=== PATIENT | female | born 1980 | race Caucasian/White ===

== ENCOUNTER → 2018-10-31 | Outpatient (CLI) | payer BC ==
[2017-02-03 16:00] VITALS: BMI 35.0
[~2018-10-31] MED LIST: CEP500 PO; CEPH500C24 PO; CIP500 PO; FAM20 PO; HYDR-385 PO; HYDR2TAB42 PO; IBU600 PO; IBUP800T37 PO; KET10 PO; LOR5/325 PO; OMEP40CA48 PO; ONDA4TAB PO; PER PO; PHENA200 GT; PHENA200 PO; PREN-127 PO; SUCR1TAB85 PO; TAM4 PO
[2018-10-31 09:45] LABS: PLATELET COUNT, AUTOMATED 463 K/uL (150-450)
== END ==
LOC: LAB 09:09
PROVIDERS: ATTEND Family Medicine
DX: R10.9 Unspecified abdominal pain (principal); K52.9 Noninfective gastroenteritis and colitis, unspecified
CPT/HCPCS: 36415; 82040; 82150; 82247; 82310; 82374; 82435; 82565; 82947; 83690; 84075; 84132; 84155; 84295; 84450; 84460; 84520; 85025

== ENCOUNTER 2019-01-30 07:14 | Emergency (ER) | payer BC ==
[2017-02-03 16:00] VITALS: Wt 86.2 kg
[2019-01-30] MEDS ORDERED: NS(*) 0.9% 1000 ML BAG 1,000 ML IV ONE (07:24)
[2019-01-30] MEDS ORDERED: ONDANSETRON 4 MG/2 ML VIAL IVP ONE (07:25)
[2019-01-30] MEDS ORDERED: fentaNYL CITR 100 MCG/2 ML AMP IVP ONE (07:25)
[2019-01-30 07:58] LABS: PLATELET COUNT, AUTOMATED 486 K/uL (150-450)
--- NOTE | 2019-01-30 08:16 | ER Report ---
History and Physical Time Seen By MD: 07:15 Hx. of Stated Complaint: PATIENT REPORTS UPPER ABDOMINAL PAIN, NAUSEA AND VOMITING SINCE YESTERDAY. HPI/ROS Awoke at 0400 with mid epigastric and RUQ pain that radiates to the back. No NSAIDs. Smoke THC not tobacco. No excessive ETOH use. Previous kidney stones. Known PUD and hiatal hernia. Complains of nausea and pain. No hematuria. No dysuria. No lower abdominal pain or vaginal bleeding. Allergies: Coded Allergies: No Known Drug Allergies (Verified , 01/21/15) Home Meds Active Scripts Ondansetron Hcl (ZOFRAN) 4 Mg Tablet, 4 MG PO Q12H for 5 Days, #14 TAB Prov:MARJAN JUDD MD 01/30/19 Hydrocodone Bit/Acetaminophen (HYDROCODON-ACETAMINOPHEN 5-325) 1 Each Tablet, 1 EACH PO Q6H for 3 Days, #14 TAB Prov:MARJAN JUDD MD 01/30/19 Ketorolac Tromethamine (KETOROLAC TROMETHAMINE) 10 Mg Tab, 10 MG PO Q6H PRN for PAIN, #12 TAB 0 Refills Prov:MARJAN JUDD MD 01/30/19 Discontinued Reported Medications Vits W-Ca,Fe,Fa(<1MG) ( VITAMINS) 1 Each Tablet, 1 EACH PO DAILY, TAB 02/03/17 Discontinued Scripts Cephalexin Monohydrate (CEPHALEXIN) 500 Mg Cap, 500 MG PO TID for 7 Days, #21 CAP 0 Refills Prov:CHULA MAGANA 02/06/17 Hydrocodone Bit/Acetaminophen (HYDROCODON-ACETAMINOPHEN 5-325) 1 Each Tablet, 1- 2 EACH PO Q4H PRN for pain, #40 TAB 0 Refills Prov:JONNY GARCIA MD 02/04/17 Ibuprofen (IBUPROFEN) 800 Mg Tablet, 1 TAB PO Q8H PRN for pain, #40 TAB 0 Refills TAKE WITH FOOD EVERY 8 HOURS Prov:JONNY GARCIA MD 02/04/17 Hx Smoking: Yes Smoking Status: Former Smoker Exposure to Second Hand Smoke?: No Hx Substance Use Disorder: No Hx Alcohol Use: Yes (RARE) Constitutional Vital Sign - Last 24 Hours 01/30/19 01/30/19 01/30/19 01/30/19 07:18 07:30 07:34 07:40 Temp 97.7 Pulse 90 68 Resp 16 B/P (MAP) 127/91 130/82 (98) Pulse Ox 90 95 O2 Delivery Room Air O2 Flow Rate 2.0 01/30/19 01/30/19 07:54 08:00 Pulse 70 B/P (MAP) 128/75 (92) Pulse Ox 99 Physical Exam General Appearance: The patient is alert, has no immediate need for airway protection and no current signs of toxicity. Eyes: Pupils equal and round no injection. Respiratory: Chest is non tender, lungs are clear to auscultation. Cardiac: regular rate and rhythm Gastrointestinal: Abdomen is soft with TTP of the midepigastric region and RUQ, no masses, bowel sounds normal. No RLQ pain or TTP. MSK: No flank TTP Skin: No rashes or lesions. DIFFERENTIAL DIAGNOSIS: After history and physical exam differential diagnosis was considered for abdominal pain including but not limited to appendicitis, cholecystitis, gastritis and urinary tract infection. Medical Decision Making Data Points Result Diagram: 01/30/1918 01/30/1918 Laboratory Hematology Test 01/30/19 07:18 White Blood Count 14.2 k/uL (4.5-11.0) H Red Blood Count 5.51 M/uL (4.17-5.56) Hemoglobin 16.2 g/dL (12.0-16.0) H Hematocrit 47.1 % (34.0-47.0) H Mean Corpuscular Volume 85.4 fL (80.0-96.0) Mean Corpuscular Hemoglobin 29.4 pg (26.0-33.0) Mean Corpuscular Hemoglobin Concent 34.5 g/dL (32.0-36.0) Red Cell Distribution Width 13.3 % (11.5-14.5) Platelet Count 486 K/uL (150-450) H Mean Platelet Volume 7.9 fL (7.2-11.1) Neutrophils (%) (Auto) 80.5 % (39.4-72.5) H Lymphocytes (%) (Auto) 12.6 % (17.6-49.6) L Monocytes (%) (Auto) 5.3 % (4.1-12.4) Eosinophils (%) (Auto) 0.5 % (0.4-6.7) Basophils (%) (Auto) 1.1 % (0.3-1.4) Nucleated RBC Relative Count (auto) 0.1 /100WBC Neutrophils # (Auto) 11.4 K/uL (2.0-7.4) H Lymphocytes # (Auto) 1.8 K/uL (1.3-3.6) Monocytes # (Auto) 0.7 K/uL (0.3-1.0) Eosinophils # (Auto) 0.1 K/uL (0.0-0.5) Basophils # (Auto) 0.2 K/uL (0.0-0.1) H Nucleated RBC Absolute Count (auto) 0.01 K/uL Chemistry Test 01/30/19 07:18 Sodium Level 138 mmol/L (137-145) Potassium Level 3.5 mmol/L (3.5-5.0) Chloride Level 104 mmol/L (98-107) Carbon Dioxide Level 22 mmol/L (22-31) Blood Urea Nitrogen 10 mg/dl (7-18) Creatinine 0.80 mg/dl (0.52-1.04) Glomerular Filtration Rate Calc > 60.0 Random Glucose 110 mg/dl (75-110) Calcium Level 9.6 mg/dl (8.4-10.2) Total Bilirubin 0.5 mg/dl (0.2-1.3) Aspartate Amino Transf (AST/SGOT) 22 U/L (0-35) Alanine Aminotransferase (ALT/SGPT) 34 U/L (0-56) Alkaline Phosphatase 80 U/L (0-126) Total Protein 8.1 g/dl (6.3-8.2) Albumin 4.6 g/dl (3.5-5.0) Lipase 91 U/L (23-300) Human Chorionic Gonadotropin, Qual Negative (NEGATIVE) ED Course/Re-evaluation ED Course Normal labs, HCG negative. Hydronephrosis seen on US, so CT to evaulate for kidney stone obtained. Seen is a 4mm right sided ureteral stone with moderate hydronephrosis. Improved with meds, and will d/c with same meds. Will follow up with Dr. Boogie. Decision to Disposition Date: Jan 30, 2019 Decision to Disposition Time: 10:43 Depart Departure Latest Vital Signs Vital Signs Date Time Temp Pulse Resp B/P (MAP) Pulse Ox O2 Delivery O2 Flow Rate FiO2 01/30/19 08:00 128/75 (92) 01/30/19 07:54 70 99 01/30/19 07:40 2.0 01/30/19 07:18 97.7 16 Room Air Impression: Primary Impression: Ureteral stone Condition: Improved Disposition: HOME OR SELF-CARE Referrals: MOHAMUD BOOGIE MD New Scripts Ondansetron Hcl (ZOFRAN) 4 Mg Tablet 4 MG PO Q12H for 5 Days, #14 TAB Prov: MARJAN JUDD MD 01/30/19 Hydrocodone Bit/Acetaminophen (HYDROCODON-ACETAMINOPHEN 5-325) 1 Each Tablet 1 EACH PO Q6H for 3 Days, #14 TAB Prov: MARJAN JUDD MD 01/30/19 Ketorolac Tromethamine (KETOROLAC TROMETHAMINE) 10 Mg Tab 10 MG PO Q6H PRN for PAIN, #12 TAB 0 Refills Prov: MARJAN JUDD MD 01/30/19 Patient Instructions: Kidney Stones (ED) MARJAN JUDD MD Jan 30, 2019 08:16
[2019-01-30] MEDS ORDERED: LIDOCAINE 2% VISC SLN 15ML UDC PO ONE (08:25)
[2019-01-30] MEDS ORDERED: MAG HYD/AL HYD/SIMETH 30ML UDC PO ONE (08:25)
[2019-01-30 08:30] VITALS: BP 135/77
[2019-01-30] MEDS ORDERED: KETOROLAC 30 MG/ML VIAL IVP ONE (08:30)
[2019-01-30] MEDS ORDERED: METOCLOPRAMIDE 10 MG/2 ML SDV IVP ONE (08:35)
--- NOTE | 2019-01-30 09:04 | RADIOLOGY IMAGING REPORT ---
FACILITY: [facility] PATIENT NAME: Jodie Rios : 1980 MR: [id number] V: [id number] EXAM DATE: ORDERING PHYSICIAN: MARJAN JUDD TECHNOLOGIST: Location: [facility] [place] Patient: Jodie Rios : 1980 Visit/Account:[id number] Date of Sevice: 01/30/2019 GALLBLADDER HISTORY: ABDOMINAL PAIN ADDITIONAL HISTORY: Right upper quadrant back pain COMPARISON: None. FINDINGS: Liver: Negative. Gallbladder: Unremarkable; no stones or sludge. Negative sonographic Jones's sign. Common duct: 3.5 mm diameter. Pancreas: Tail of the pancreas partially obscured by overlying bowel gas. Visualized portions of the pancreas appear normal. Right kidney: There is mild right-sided hydronephrosis. There is ureterectasis with proximal ureter m easuring 10 mm diameter terminating in a stone lodged in the proximal right ureter. The stone is well -visualized and measures 9 mm longest dimension. Upper abdominal aorta and IVC: Patent. Ascites: None visualized. IMPRESSION: There is a stone lodged in the proximal right ureter causing at least partial obstruction of the righ t renal collecting system. Slightly limited view of the pancreas. Remainder normal Results were called to MARJAN JUDD at 01/30/2019 8:48 AM. Report Dictated By: Naren Montalvo MD at 01/30/2019 8:48 AM Report E-Signed By: Naren Montalvo MD at 01/30/2019 8:55 AM [id number]
[2019-01-30] MEDS ORDERED: HYDROMORPHONE HCL 1 MG/ML SYRINGE IVP ONE (09:20)
--- NOTE | 2019-01-30 09:35 | RADIOLOGY IMAGING REPORT ---
FACILITY: [facility] - [place] PATIENT NAME: Jodie Rios : 1980 MR: [id number] V: [id number] EXAM DATE: [id number] ORDERING PHYSICIAN: MARJAN JUDD TECHNOLOGIST: Location: Patient: Jodie Rios : 1980 Visit/Account:[id number] Date of Sevice: 01/30/2019 CT ABDOMEN PELVIS W/O CON HISTORY: Right flank pain TECHNIQUE: CT abdomen and pelvis without intravenous contrast. One of the following dose optimization techniques was utilized in the performance of this exam: Autom ated exposure control; adjustment of the mA and/or kV according to the patient's size; or use of an i terative reconstruction technique. Specific details can be referenced in the facility's radiology C T exam operational policy. CONTRAST: None. COMPARISON: CT abdomen pelvis 07/11/2011. FINDINGS: Visualized lung bases: Negative. Hepatobiliary: Negative. Spleen: Negative. Adrenals: Negative. Pancreas: Negative. Kidneys/: The kidneys are normal in size and location. There is a 4 mm stone in the proximal right ureter with resultant moderate to severe right hydroureteronephrosis. Fat stranding is noted around the proximal right ureter. Distal to the obstructing stone the right ureter appears decompressed. Three additional punctate stones are noted in the right kidney. No evidence of left-sided hydrourete ronephrosis or left nephroureterolithiasis. The urinary bladder is decompressed. GI: There is a moderate sized hiatal hernia. No evidence of large or small bowel obstruction. The appendix is visualized and appears unremarkable. Vessels/spaces/nodes: Negative. A few tiny phleboliths are noted in the pelvis. Bones/soft tissues: Mild degenerative changes in the lower lumbar spine. No evidence of acute fracture or osseous destructive process. IMPRESSION: 1. Obstructing 4 mm stone in the proximal right ureter with resultant moderate to severe right hydro ureteronephrosis. Three additional punctate stones are noted in the right kidney. 2. Additional findings as detailed above. Report Dictated By: Russell Yanez MD at 01/30/2019 9:15 AM Report E-Signed By: Russell Yanez MD at 01/30/2019 9:26 AM WSN:[id number]
[2019-01-30] MEDS ORDERED: KET10 PO (10:49)
[2019-01-30] MEDS ORDERED: HYDR-385 PO (10:49)
[2019-01-30] MEDS ORDERED: ONDA4TAB97 PO (10:50)
== END 2019-01-30 11:13 | disposition home or self-care (01) ==
LOC: ER 07:54
DX: N20.1 Calculus of ureter (principal); Z87.442 Personal history of urinary calculi; Z87.891 Personal history of nicotine dependence; Z79.899 Other long term (current) drug therapy
CPT/HCPCS: 74176; 76705; 83690; 84703; 85025; 96361; 96374; 96375; 99284; J1170; J1885; J2405; J2765; J3010; J7030; 82040; 82247; 82310; 82374; 82435; 82565; 82947; 84075; 84132; 84155; 84295; 84450; 84460; 84520